=== PATIENT | female | born 1985 | race Caucasian/White ===

== ENCOUNTER 2021-12-15 08:42 | Outpatient (REF) | payer OTHER, SELFPAY ==
[2021-12-15 10:37] LABS: MANUAL DIFF FLAG NO
[2021-12-15 10:50] LABS: Basophils Percent Auto 0.2 % (0-2); Eosinophils Absolute Auto 0.1 X10*3/uL (0.0-0.4); Eosinophils Percent Auto 3.4 % (0-4); Hematocrit 41.4 % (37.0-47.0); Hemoglobin 13.6 g/dl (12.0-16.0); Imm Gran Abs Auto 0.01 X10*3/uL (0.00-0.03); Imm Gran Pct Auto 0.2 % (0.0-0.4); Lymphocytes Absolute Auto 1.7 X10*3/uL (1.2-4.9); Lymphocytes Percent Auto 40.9 % (20-40); Mean Corpuscular HGB Conc 32.9 g/dl (31.0-35.0); Mean Corpuscular Hemoglobin 31.3 pg (27.0-33.0); Mean Corpuscular Volume 95.2 fL (80.0-98.0); Monocytes Absolute Auto 0.4 X10*3/uL (0.1-1.2); Monocytes Percent Auto 10.3 % (2-11); Neutrophils Absolute Auto 1.8 x10*3/uL (2.0-8.3); Platelet Count 207 X10*3/uL (160-400); Red Blood Count 4.35 X10*6/uL (4.20-5.50); Red Cell Distribution Width 11.7 % (11.0-16.0); White Blood Count 4.1 X10*3/uL (4.8-10.8)
[2021-12-15 11:03] LABS: Alanine Aminotransferase 13 U/L (0-31); Albumin Level 4.4 g/dL (3.5-5.0); Alkaline Phosphatase 58 U/L (39-117); Anion Gap 12 (12-20); Aspartate Amino Transferase 13 U/L (5-31); Bilirubin Total 0.3 mg/dL (0.0-1.0); Blood Urea Nitrogen 12 mg/dL (9-16); Calcium 9.4 mg/dL (8.4-10.2); Carbon Dioxide 24 mmol/L (22-29); Chloride 108 mmol/L (96-108); Cholesterol 186 mg/dL; Estimated Glomerular Filt Rate > 60; Glucose Fasting 97 mg/dL (60-99); HDL Cholesterol 78 mg/dL; LDL Cholesterol Calculated 98 mg/dl; Potassium 4.6 mmol/L (3.3-5.1); Sodium 139 mmol/L (135-145); Total Protein 6.7 g/dL (6.5-8.0); Triglycerides 51 mg/dL
[2021-12-15 11:27] LABS: TSH reflex Free T4 1.23 uIU/mL (0.32-4.0)
== END 2021-12-15 08:43 | disposition home or self-care (01) ==
LOC: HO.WFDLDS 08:42
PROVIDERS: Visit Provider Family Medicine
DX: Z00.00 Encounter for general adult medical examination without abnormal findings (principal)
CPT/HCPCS: 36415; 80053; 80061; 84443; 85025

== ENCOUNTER 2022-09-04 | Outpatient (REF) | payer OTHER, SELFPAY ==
[2022-09-05 12:46] LABS: Influenza A PCR POSITIVE (Negative); Influenza B PCR NEGATIVE (Negative); Resp Syncy Virus RNA Qual PCR NEGATIVE (Negative); SARS COV2 PCR INHOUSE NEGATIVE (Negative)
== END 2022-09-04 00:01 | disposition home or self-care (01) ==
LOC: HO.LNP
PROVIDERS: Visit Provider Nurse Practitioner Family
DX: Z20.822 Contact with and (suspected) exposure to COVID-19 (principal); J06.9 Acute upper respiratory infection, unspecified
CPT/HCPCS: 0241U

== ENCOUNTER 2024-12-10 15:47 | Outpatient (AMB) | payer OTHER, SELFPAY ==
--- NOTE | 2024-12-10 16:24 | MHC.PC.OV ---
Vital Signs 12/10/24 16:33 Height 5 ft 7 in Weight 158 lb 4 oz BMI 24.8 BP 90/60 Blood Pressure Location Rt brachial Position Sitting Respiration 14 Pulse 75 Pulse Source Pulse Oximeter Temp 99.9 F Temp Source Oral Pulse Oximetry (%) 99 Oxygen Delivery Method Room Air Intake Visit Reasons: Annual PE Allergies SEASONAL ALLERGIES Allergy (Unknown, Uncoded 09/04/22 14:24) ITCHING Medication List - Last Reconciled 12/10/24 by Daniel Henry MD escitalopram oxalate (Lexapro) 10 mg PO DAILY escitalopram oxalate 5 mg PO DAILY fexofenadine (Odalys Allergy) 180 mg PO DAILY lorazepam 0.5 mg PO DAILY PRN oxcarbazepine 300 mg PO TID-QID Tobacco use date assessed: 12/10/24 Dental Screening Dental Screen Date: 12/10/24 Did you have a dental visit in the last 12 months?: Yes Did you have a dental problem in the last 6 months where you did not have access to dental care?: No Was dental information given to patient?: No HPI Annual PE HPI Details 39 y/o female presents for a CPE with f/u labs and health maintenance. No recent labs to review. PHQ-9 4, CHRIS-7 9 today. She is on escitalopram, lorazepam for her mood. Also still on oxcarbazepine. She continues to see her mental health prescriber and her therapist. Eats a healthy diet. She notes she could improve on her exercise. HPI Comments History of Present Illness Details Documentation assistance for Daniel Henry MD, was provided by Kory Patterson,? Marine Engineering Consultant on 12/10/2024 at 4:45 PM EST. I, Dr. Henry, have read, observed, and verified documentation. ?? [facility] Family History (Updated 12/10/24 @ 16:28 by ELIUD Banks) Mother Parkinson disease FH: mental illness Brother FH: mental illness Social History Housing: House Patient Tobacco Use Status: Never used Tobacco e-Cigarette/Vaping Use: Never Used service: No Current occupational status: employed Current occupational exposures/hazards: No Cognitive needs: No Hearing needs: No Vision needs: No Questionnaire PHQ-9 Over the last 2 weeks, how often have you been bothered by any of the following problems? 1. Little interest or pleasure in doing things: several days 2. Feeling down, depressed, or hopeless: several days 3. Trouble falling or staying asleep, or sleeping too much: not at all 4. Feeling tired or having little energy: several days 5. Poor appetite or overeating: not at all 6. Feeling bad about yourself - or that you are a failure or have let yourself or your family down: not at all 7. Trouble concentrating on things, such as reading the newspaper or watching television: not at all 8. Moving or speaking so slowly that other people could have noticed. Or the opposite - being so fidgety or restless that you have been moving around a lot more than usual: several days 9. Thoughts that you would be better off or of hurting yourself in some way: not at all Total score: 4 Depression Screening Interpretation: Negative Depression Screening Done: Yes 80334 - PHQ-9 Billing: Yes Source: Developed by Drs. Jorge Alberto De Leon, Skyla Jaffe, Arnaldo Thomas and colleagues, with an educational deborah from [employer]. Thrive Questionnaire Date Thrive assessed: 12/10/24 I am a: Patient What is your living situation today?: I have a steady place to live Within the past 12 months, did the food you bought not last and you didn't have the money to get more?: Never true Within the past 12 months, did you worry whether your food would run out before you got money to buy more?: Never true Do you have trouble paying for medicines?: No Do you have trouble getting transportation to medical appointments?: No Do you have trouble paying your heating and electricity bill?: No Do you have trouble taking care of your child, family member or friend?: No Do you have trouble with day-to-day activities such as bathing, preparing meals, shopping, managing finances, etc.?: No Are you currently unemployed and looking for a job?: Yes Are you interested in more education?: Yes Please select the resources that you would like help with: Care for elder or disabled Currently or been in a relationship where the following occur: No concerns reported THRIVE Score: 0 AUDIT C Alcohol Use Questionnaire (AUDIT-C) 1. How often do you have a drink containing alcohol?: 2-3 times a week 2. How many drinks containing alcohol do you have on a typical day when you are drinking?: 1 or 2 3. How often do you have six or more drinks on one occasion?: Never Total Score: 3 Score Reviewed/Action Taken: Yes CHRIS-7 AMB Questionnaire CHRIS-7 Date CHRIS - 7 assessed: 12/10/24 Feeling nervous, anxious, or on edge: 1 = Several days Not being able to stop or control worryin = Several days Worrying too much about different things: 2 = More than half the days Trouble relaxin = More than half the days Being so restless that it is hard to sit still: 1 = Several days Becoming easily annoyed or irritable: 1 = Several days Feeling afraid as if something awful might happen: 1 = Several days Total CHRIS-7 score (0-4 normal; 5-9 mild; 10-14 moderate; 15-21 severe): 9 Source: Developed by Drs. Jorge Alberto De Leon, Skyla Jaffe, Arnaldo Thomas and colleagues, with an educational deborah from [employer]. CHRIS-7 Assessment Billing CHRIS-7 Assessment Tool: CHRIS-7 Assessment 16751 Review of Systems Const Denies chills, Denies fatigue, Denies fever(s), Denies headache(s) and Denies weakness Eyes Denies change in vision ENT Denies dizziness, Denies headache(s), Denies hearing loss, Denies nasal congestion, Denies sinus pain, Denies sinus pressure and Denies sore throat Card Denies chest pain, Denies lightheadedness, Denies dyspnea and Denies other (palpitations) Resp Denies cough, Denies dyspnea and Denies wheezing GI Denies abdominal pain, Denies melena, Denies hematochezia, Denies change in bowel habits, Denies dyspepsia and Denies nausea Denies hematuria and Denies dysuria Musc Denies abnormal gait, Denies myalgias, Denies arthralgias, Denies numbness and Denies tingling Skin/Breast Denies rash, Denies unusual bruising and Denies wounds Neuro Denies abnormal gait, Denies dizziness, Denies headache(s), Denies memory loss, Denies numbness, Denies Sensory deficit (Neuro), Denies tingling and Denies weakness Psych Reports anxiety, Denies depression and Denies memory loss Endo Denies cold intolerance, Denies fatigue, Denies heat intolerance, Denies polydipsia and Denies polyuria Tyrone/Lymph Denies easy bleeding and Denies easy bruising Aller/Immun Denies wheezing Physical exam (Primary Care) Vital Signs: Last Vital Signs Temp 99.9 F 12/10/24 16:33 Pulse 75 12/10/24 16:33 Resp 14 12/10/24 16:33 BP 90/60 12/10/24 16:33 Pulse Ox 99 12/10/24 16:33 Oxygen Delivery Method Room Air 12/10/24 16:33 BMI result Body Mass Index 24.8 Tobacco/Smoking Status: Tobacco use Status Tobacco use date assessed 12/10/24 12/10/24 16:38 Patient Tobacco Use Status Never used Tobacco 12/10/24 16:25 e-Cigarette/Vaping Use Never Used 12/10/24 16:25 PHQ-9: PHQ-9 Score PHQ-9: Total score 4 12/10/24 16:38 Depression Screening Interpretation: Negative Thrive Assessment: Date of Thrive Assessment Date Thrive assessed 12/10/24 12/10/24 16:38 Currently or been in a relationship where the following occur: No concerns reported Const General: no acute distress, well developed, alert and awake Nutritional Appearance: well nourished Orientation/consciousness: patient oriented x3 HENMT Head: Yes normocephalic and Yes atraumatic Ears: hearing grossly normal bilaterally and TM's normal bilaterally General nose exam: Normal external nose present and Normal nares present Mouth: Normal oral and palatal mucosa present and moist mucous membranes Teeth and gingiva: dentition normal Throat: Yes posterior oropharynx normal Eyes General: appearance normal, both eyes and all related structures Pupils: Equal, round and reactive pupils present and Pupil accommodation reflex normal EOM: EOMs intact bilaterally Neck Neck: Yes normal visual inspection, Yes no lymphadenopathy and Yes trachea midline Thyroid: Thyroid normal Carotids: no bruits Lymphatic: no lymphadenopathy noted Chest Chest palpation & inspection: normal inspection of the chest Resp Effort & Inspection: normal respiratory effort Auscultation: clear to auscultation bilaterally Cardio Rate: regular rate Rhythm: regular rhythm Heart sounds: S1 normal heart sound present, S2 normal heart sound present, no gallops, no murmurs and no rubs Bruits: no abdominal aortic bruits and no carotid bruits GI Palpation (GI): No Abdominal aortic bruit present, Soft to palpation, nontender, No hepatosplenomegaly present and No Rebound tenderness present Auscultation: normal bowel sounds General: Yes no CVA tenderness Back/Spine/Pelvis Back: no CVA tenderness Cervical Spine: cervical ROM normal and No Cervical spine tenderness Thoracic/Lumbar Spine: thoraco-lumbar ROM normal, No pain with thoraco-lumbar ROM, No thoracic spinal tenderness and No lumbar spinal tenderness Skin Lesions: no lesions Rashes: no rashes Trauma: no lacerations or abrasions Wounds: no wounds Nails: normal Neuro General: patient oriented x3 Cranial nerves: Yes Equal, round and reactive pupils present Cognition (Neuro): normal cognition Gait exam (Neuro): Normal gait present Motor exam (neuro): 5/5 motor strength present throughout Sensory Exam: No Sensory deficit (Neuro) Deep tendon reflexes (DTR's): Right patellar reflex intensity grade: 2+ and Left patellar reflex intensity grade: 2+ Extrem General: Yes normal to inspection and No edema Psych Appearance: grossly normal Affect: normal affect Attitude: cooperative Thought process: Normal thought process present Coding Level of Care Code Est Pt Level 3 (39054) Est Pt Prev Care 18-39y(19716) Diagnoses Adult general medical exam Z00.00 Anxiety and depression F41.9; F32.A Screening for cervical cancer Z12.4 Right forearm pain M79.631 Additional Codes CHRIS-7 Assessment Billing - CHRIS-7 Assessment Tool: CHRIS-7 Assessment 81572 ([id number]) PHQ-9 - 93927 - PHQ-9 Billing: Yes ([id number]) Assessment & Plan Assessment & Plan (1) Adult general medical exam: Code(s): Z00.00 - Encounter for general adult medical examination without abnormal findings Category: Medical Plan: 39-year-old?female?presents?for?complete?physical?exam Encouraged?healthy?diet?with?active?lifestyle?and?plenty?of?exercise (2) Anxiety and depression: Code(s): F41.9 - Anxiety disorder, unspecified; F32.A - Depression, unspecified Category: Medical Plan: Ongoing?mild?anxiety. She?has?a?therapist?and?psych?med?provider. Follow-up?as?recommended (3) Screening for cervical cancer: Code(s): Z12.4 - Encounter for screening for malignant neoplasm of cervix Category: Medical Plan: Had?been?followed?by?[facility]?in?the?past. She?requests?a?referral?which?I?have?made?for?follow-up?in?screening?for?cervical?cancer. (4) Right forearm pain: Code(s): M79.631 - Pain in right forearm Category: Medical Plan: Right?wrist?and?forearm?tenderness?and?pain. She?has?had?imaging?which?was?unremarkable?and occupational?therapy/PT?x1?month?without?significant?improvement. She?is?using?a?wrist?brace?at?night?loosely?and?an?Abad?bandage?when?needing?extra?support?during?the?day. Referred?to?Ortho Orders: Orders Comprehensive [place]. Panel Fast 12/09/24 Z00.00 - Encounter for general adult medical examination without abnormal findings Complete Blood Count Auto Diff 12/09/24 Z00.00 - Encounter for general adult medical examination without abnormal findings Lipid Panel 12/09/24 Z00.00 - Encounter for general adult medical examination without abnormal findings UA and rflx microscopic 12/09/24 Z00.00 - Encounter for general adult medical examination without abnormal findings TSH reflex Free T4 12/09/24 Z00.00 - Encounter for general adult medical examination without abnormal findings Microalbumin, Random (w Creat) 12/09/24 I10 - Essential (primary) hypertension Referrals Hand Surgery Referral M77.8 - Other enthesopathies, not elsewhere classified, M79.631 - Pain in right forearm FAMILY RESOURCE COORDINATOR Referral Z12.4 - Encounter for screening for malignant neoplasm of cervix
[2024-12-10 16:33] VITALS: BP 90/60; PULSE 75; RESP 14; TEMP 37.7; O2SAT 99; BMI 24.8
== END 2024-12-10 16:56 | disposition home or self-care (01) ==
LOC: HO.HMCFM 15:48
PROVIDERS: PCP Family Medicine; Visit Provider Family Medicine
DX: Z00.00 Encounter for general adult medical examination without abnormal findings (principal); F41.9 Anxiety disorder, unspecified; F32.A Depression, unspecified; M79.631 Pain in right forearm

== ENCOUNTER → 2024-12-10 15:47 | Outpatient (BNVA) | payer OTHER, SELFPAY | PROVIDERS: PCP Family Medicine; Visit Provider Family Medicine | DX: Z00.00 Encounter for general adult medical examination without abnormal findings (principal); F41.9 Anxiety disorder, unspecified; F32.A Depression, unspecified; M79.631 Pain in right forearm; Z79.899 Other long term (current) drug therapy | CPT/HCPCS: 96127 ==

== ENCOUNTER 2024-12-23 11:42 | Outpatient (REF) | payer OTHER, SELFPAY ==
[2024-12-23 14:07] LABS: MANUAL DIFF FLAG NO
[2024-12-23 14:10] LABS: Appearance Urine Clear; Color Urine Yellow; Glucose Urine UA Negative (Negative); Leukocyte Esterase Urine Negative (Negative); Nitrite Urine Negative (Negative); PH 5.5 (5.0-9.0); Specific Gravity - Urine 1.025 (1.005-1.025); UMIC TRIGGER UA YES; Urine Blood Trace (Negative); Urine Ketones Negative (Negative); Urine Protein Negative (Neg-Trace)
[2024-12-23 14:15] LABS: Bacteria Urine None Seen (None Seen); Hyaline Casts Urine 0-2 /LPF (0-2); RBC Urine 0-2 /HPF (0-2); Squamous Epithelial Cell Urine 0-2 /HPF (0-2); WBC Urine 0-5 /HPF (0-5)
[2024-12-23 14:16] LABS: Basophils Percent Auto 0.4 % (0-2); Eosinophils Absolute Auto 0.2 X10*3/uL (0.0-0.4); Eosinophils Percent Auto 4.1 % (0-4); Hemoglobin 13.2 g/dl (12.0-16.0); Imm Gran Abs Auto 0.01 X10*3/uL (0.00-0.03); Imm Gran Pct Auto 0.2 % (0.0-0.4); Lymphocytes Absolute Auto 2.2 X10*3/uL (1.2-4.9); Lymphocytes Percent Auto 42.7 % (20-40); Mean Corpuscular Hemoglobin 31.5 pg (27.0-33.0); Mean Corpuscular Volume 95.5 fL (80.0-98.0); Mean Platelet Volume 11.3 fL (9.4-12.3); Monocytes Absolute Auto 0.4 X10*3/uL (0.1-1.2); Monocytes Percent Auto 8.5 % (2-11); NRBC Pct Auto 0.8 /100WBC (0.0-0.2); Neutrophils Absolute Auto 2.3 x10*3/uL (2.0-8.3); Neutrophils Percent Auto 44.1 % (45-73); Platelet Count 216 X10*3/uL (160-400); Red Blood Count 4.19 X10*6/uL (4.20-5.50); White Blood Count 5.2 X10*3/uL (4.8-10.8)
--- OUTSIDE RECORDS SUMMARY | 2024-12-23 14:25 | XMS_ITS | Patient Health Record ---
Author Organization [address] Address [address] [place] [id number] Care Team Providers Care Carrot Harvester Name Role Phone Declined, PCP Primary Care Provider Unavailabl e Reason For Referral No Information Plan Of Treatment No Information
[2024-12-23 14:36] LABS: Creatinine Urine 161.31 mg/dL; Microalbum/Creatinine Ratio Ur 6.1 ug/mg cr (<30)
[2024-12-23 16:59] LABS: Alanine Aminotransferase 14 U/L (0-31); Albumin Level 4.4 g/dL (3.5-5.0); Alkaline Phosphatase 66 U/L (39-117); Anion Gap 9 (12-20); Aspartate Amino Transferase 19 U/L (5-31); Bilirubin Total 0.5 mg/dL (0.0-1.0); Blood Urea Nitrogen 11 mg/dL (9-16); Carbon Dioxide 26 mmol/L (22-29); Chloride 107 mmol/L (96-108); Cholesterol 202 mg/dL (<200); Estimated Glomerular Filt Rate > 60; Glucose Fasting 85 mg/dL (60-99); HDL Cholesterol 80 mg/dL (>40); LDL Cholesterol Calculated 104 mg/dL (<100); Potassium 3.5 mmol/L (3.3-5.1); Sodium 138 mmol/L (135-145); TSH reflex Free T4 0.71 uIU/mL (0.32-4.0); Total Protein 6.4 g/dL (6.5-8.0); Triglycerides 94 mg/dL (<150)
== END 2024-12-23 11:43 | disposition home or self-care (01) ==
LOC: HO.WFDLDS 11:42
PROVIDERS: Visit Provider Family Medicine
DX: Z00.00 Encounter for general adult medical examination without abnormal findings (principal); I10 Essential (primary) hypertension
CPT/HCPCS: 36415; 80053; 80061; 81001; 82043; 82570; 84443; 85025

== ENCOUNTER 2025-01-19 14:00 | Outpatient (AMB) | payer OTHER, SELFPAY ==
--- NOTE | 2025-01-19 13:57 | A.OFFPC_ITS ---
Intake Visit Reasons: f/u CPE-labs via telemedicine Intake Note: patient is scheduled for lab review Patient Transportation Driver Required: No Allergies SEASONAL ALLERGIES Allergy (Unknown, Uncoded 09/04/22 14:24) ITCHING Tobacco use date assessed: 12/10/24 Dental Screening Dental Screen Date: 12/10/24 HPI f/u CPE-labs via telemedicine HPI Details Telemedicine?encounter?to?follow-up?on?CPE-labs Reviewed?labs?with?patient,: Mildly?elevated?LDL?and?TC?cholesterol at?104?and?202?respectively HDL?is?desirably?high?at?80 Triglycerides?are?within?normal?range Her?other?labs?were?okay Patient?has?an?appointment?with the?hand?specialist?for?her?right?wr ist?and?forearm?coming?up?in?about?2?days. No?new?complaints PFSH Family History (Updated 12/10/24 @ 16:28 by ELIUD Banks) Mother Parkinson disease FH: mental illness Brother FH: mental illness Social History Housing: House Patient Tobacco Use Status: Never used Tobacco e-Cigarette/Vaping Use: Never Used service: No Current occupational status: employed Current occupational exposures/hazards: No Cognitive needs: No Hearing needs: No Vision needs: No Questionnaire Thrive Questionnaire Date Thrive assessed: 12/07/24 I am a: Patient What is your living situation today?: I have a steady place to live Within the past 12 months, did the food you bought not last and you didn't have the money to get more?: Never true Within the past 12 months, did you worry whether your food would run out before you got money to buy more?: Never true Do you have trouble paying for medicines?: No Do you have trouble getting transportation to medical appointments?: No Do you have trouble paying your heating and electricity bill?: No Do you have trouble taking care of your child, family member or friend?: No Do you have trouble with day-to-day activities such as bathing, preparing meals, shopping, managing finances, etc.?: No Are you currently unemployed and looking for a job?: Yes Are you interested in more education?: Yes Please select the resources that you would like help with: Care for elder or disabled Currently or been in a relationship where the following occur: No concerns reported THRIVE Score: 0 CHRIS-7 AMB Questionnaire CHRIS-7 Date CHRIS - 7 assessed: 12/10/24 Source: Developed by Drs. Jorge Alberto De Leon, Skyla Jaffe, Arnaldo Thomas and colleagues, with an educational deborah from [employer]. Review of Systems Const Denies chills, Denies fatigue, Denies fever(s), Denies headache(s) and Denies weakness ENT Denies dizziness and Denies headache(s) Card Denies chest pain, Denies lightheadedness, Denies dyspnea and Denies other (Palpitations) Resp Denies cough, Denies dyspnea, Denies wheezing and Denies other ( shortness of breath) Musc Denies numbness and Denies tingling Neuro Denies dizziness, Denies headache(s), Denies numbness, Denies tingling, Denies paresthesias and Denies weakness Psych Denies anxiety and Denies depression Endo Denies fatigue Aller/Immun Denies wheezing Physical exam (Primary Care) Tobacco/Smoking Status: Tobacco use Status Tobacco use date assessed 12/10/24 01/19/25 14:00 Patient Tobacco Use Status Never used Tobacco 01/19/25 14:00 e-Cigarette/Vaping Use Never Used 01/19/25 14:00 Thrive Assessment: Date of Thrive Assessment Date Thrive assessed 12/07/24 01/19/25 14:00 Currently or been in a relationship where the following occur: No concerns reported Telehealth Telehealth Telehealth Platform: Telephone Location of provider rendering services: practice address Location of patient: address on file Patient Identification confirmed using: Name, : Yes Telehealth method: voice only Patient verbally consented to treatment: Yes Patient verbally consented to billing insurance company: Yes Patient informed of any privacy concerns related to visit: Yes Minutes spent on Phone/Video with Pt.: 5 Coding Level of Care Code Tele Est Pt Level 2 (45076) Diagnoses Elevated LDL cholesterol level E78.00 Assessment & Plan Assessment & Plan (1) Elevated LDL cholesterol level: Code(s): E78.00 - Pure hypercholesterolemia, unspecified Category: Medical Plan: Mildly?elevated?LDL?cholesterol. HDL?is?desirably?high?and?ratios?are?ideal. Encouraged?diet?a?little?lower?in?saturated?fats?and?cholesterol No?need?for?medication?at?this?time.
--- OUTSIDE RECORDS SUMMARY | 2025-01-19 15:36 | XMS_ITS | Patient Health Record ---
Author Organization [address] Address [address] [place] [id number] Care Team Providers Care Supervisor Network Control Operators Name Role Phone Declined, PCP Primary Care Provider Unavailabl e Reason For Referral No Information Plan Of Treatment No Information
== END 2025-01-19 17:05 | disposition home or self-care (01) ==
LOC: HO.HMCFM 14:00
PROVIDERS: PCP Family Medicine; Visit Provider Family Medicine
DX: E78.00 Pure hypercholesterolemia, unspecified (principal)

== ENCOUNTER → 2025-01-19 14:00 | Outpatient (BNVA) | payer OTHER, SELFPAY | PROVIDERS: PCP Family Medicine; Visit Provider Family Medicine | DX: Z13.89 Encounter for screening for other disorder (principal) ==

== ENCOUNTER 2025-01-21 10:04 | Outpatient (AMB) | payer OTHER, SELFPAY ==
--- NOTE | 2025-01-21 10:18 | A.OFFVIS_ITS ---
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 States pain is in her wrist. States this started in September and as of 1 month ago she is having numbness on her ulnar aspect of wrist. Pain is triggered with flexion and extension of wrist. No injury she can recall. States she was seen at a urgent care in [place] where she was RX ibuprofen and was given exercises to do at home. Patient recall at first exercises were painful but now pain has improved. Denies numbness, tingling or locking of any finger. 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 She complains of right wrist pain for ~4 months now. Her pain is worse with gripping, lifting, and and wrist flexion/extension motions. She says overall her pain is improving She denies any falls or known injuries. She says this began the beginning of September, but worsened in October after she helped move her [facility]. She has been out of work since last year. She says she is caring for her mother, who has Parkinsons. She used to work as a handicapped teacher. [facility] Family History (Updated 12/10/24 @ 16:28 by Rajesh Crowe [facility]) Mother Parkinson disease FH: mental illness Brother FH: mental illness Social History (Updated 01/21/25 @ 10:24 by Lily Mares [facility]) Housing: House Patient Tobacco Use Status: Never used Tobacco e-Cigarette/Vaping Use: Never Used service: No Current occupational status: unemployed Current occupation: left hand Current occupational exposures/hazards: No Cognitive needs: No Hearing needs: No Vision needs: No Review of Systems Const All systems reviewed & are unremarkable except as noted in HPI and below Physical Exam Vital Signs: BMI result Body Mass Index 23.5 Const General: cooperative, healthy appearing and no acute distress Orientation/consciousness: patient oriented x3 HEENT Head: Yes normocephalic and Yes atraumatic Eyes EOM: EOMs intact bilaterally Resp Effort & Inspection: normal respiratory effort and able to speak in complete sentences Cardio Jugular venous distension: no JVD Skin General skin exam: turgor normal Rashes: no rashes Neuro General: patient oriented x3 Extrem Other: Evaluation of Right Upper Extremity: The patient is alert, oriented, and in no acute distress Neuro: Median, Ulnar, Radial nerves motor and sensory intact and sensation is normal to the tips of all digits Vascular: Cap refill brisk ROM: She can make a fist and extend all her digits No locking or catching No pain with axial loading of the wrist joint Skin: No lacerations or abrasions. General: No Ecchymosis. No Erythema or evidence of infection. Tenderness over the 1st dorsal compartment tendons as it goes across the wrist Mildly positive Char test No tenderness over the MCP joint MCP joint stable on exam No snuffbox tenderness No scaphoid tubercle tenderness No tenderness over the ECU tendon, patient reports this used to be present but h as resolved. Radiographs: 3 views of the right wrist were taken and viewed by me today in clinic. They show no fractures, dislocations, or arthritic changes. Psych Appearance: grossly normal Affect: normal affect Attitude: cooperative Assessment & Plan Assessment & Plan (1) De Quervain's tenosynovitis, right: Code(s): M65.4 - Radial styloid tenosynovitis [de Quervain] Category: Medical Plan Assessment & Plan: 1. Right De Quervain's tenosynovitis Onset ~09/18/24 Mildly positive Char test I educated her about this condition She seems to have resolving De Quervain's, improving with rest & time. I discussed treatment options, including injections & surgery No injections indicated at this time I recommend bracing & activity modification, and she is in agreement I discussed activity modification, they should limit or avoid any heavy or repetitive pinching or gripping activities She was fitted for a comfort cool brace to wear with daily activity She should work on ROM exercises, and avoid any gripping or strengthening activities If her symptoms increase in frequency or severity, she can follow up to discuss a possible steroid injection Otherwise, she can follow up prn Scribed for Karime Benitez MD by Stiven Quevedo medical imaging tech, on 01/21/25 at 10:40 AM, EST. Orders: Orders XR wrist RT min 3V Today M25.531 - Pain in right wrist Coding Level of Care Code New Pt Level 3 (59787) Diagnoses De Quervain's tenosynovitis, right M65.4
[2025-01-21 10:20] VITALS: BMI 23.5
--- OUTSIDE RECORDS SUMMARY | 2025-01-21 11:17 | XMS_ITS | Patient Health Record ---
Author Organization [address] Address [address] [place] [id number] Care Team Providers Care Commutator V Ring Assembler Name Role Phone Declined, PCP Primary Care Provider Unavailabl e Reason For Referral No Information Plan Of Treatment No Information
== END 2025-01-21 10:51 | disposition home or self-care (01) ==
LOC: HO.HOS 10:05
PROVIDERS: PCP Family Medicine; Visit Provider Orthopaedic Surgery
DX: M65.4 Radial styloid tenosynovitis [de Quervain] (principal)
CPT/HCPCS: 99203

== ENCOUNTER → 2025-01-21 10:11 | Outpatient (BNV) | payer OTHER, SELFPAY | PROVIDERS: Visit Provider Radiology Diagnostic Radiology | DX: M25.531 Pain in right wrist (principal) | CPT/HCPCS: 73110 ==

== ENCOUNTER 2025-01-21 15:17 | Outpatient (REF) | payer OTHER, SELFPAY ==
--- NOTE | ~2025-01-21 | XR_ITS ---
EXAMINATION: XR WRIST, RIGHT CLINICAL INFORMATION: M25.531 - Pain in right wrist COMPARISON: None available. TECHNIQUE: PA, lateral, and oblique views of the right wrist. FINDINGS: No fracture, dislocation, or suspicious bone lesion. Normal bone mineralization. Normal alignment. Mild negative ulnar variance. Joint spaces are preserved. No significant arthropathy. No periarticular erosions. No significant joint effusion. Soft tissues appear normal. XR/XR wrist RT min 3V IMPRESSION: Normal right wrist. Electronically signed by: Yury Dietz MD 01/21/2025 10:34 AM EDT
--- OUTSIDE RECORDS SUMMARY | 2025-01-22 15:51 | XMS_ITS | Patient Health Record ---
Author Organization [address] Address [address] [place] [id number] Care Team Providers Care Liberal Arts And Humanities Chair Name Role Phone Declined, PCP Primary Care Provider Unavailabl e Reason For Referral No Information Plan Of Treatment No Information
== END 2025-01-21 15:18 | disposition home or self-care (01) ==
LOC: HO.HOSX 15:17
PROVIDERS: Visit Provider Orthopaedic Surgery
DX: M65.4 Radial styloid tenosynovitis [de Quervain] (principal)
CPT/HCPCS: 73110